=== PATIENT | female | born 1950 | race Caucasian/White ===

== ENCOUNTER 2018-12-06 11:15 | Outpatient (CLI) | payer MEDICARE, OTHER ==
--- NOTE | 2018-12-07 14:01 | Diagnostic Imaging Report ---
SAVANNAH QUINTERO [facility] [id number] [id number] Report Submission Date: Dec 06, 2018 12:16:12 PM CDT Patient Study Name: DARYL GOMES Date: Dec 06, 2018 12:00:00 AM CDT Modality Type: DEXA\OT Gender: F Description: DEXA : 50 Institution: [facility] Physician: SAVANNAH QUINTERO Examination: Bone density History: Assess bone mineralization Comparison exams: None available Technique: DEXA protocol Findings: Average bone mineral density from L1 through L4: 1.595 grams cm2. T score: 3.5 Average bone mineral density of the left femoral neck: 0.987 grams cm2. T score: -0.5 Average bone mineral density of the right femoral neck: 0.990 grams cm2. T score: 0.0 Impression: Normal lumbar spine and hip mineralization for age Electronically signed on Dec 06, 2018 12:16:12 PM CDT by: Cb [email or web address]
== END 2018-12-06 11:17 ==
LOC: RAD 11:15
PROVIDERS: ATTEND Family Medicine
DX: Z78.0 Asymptomatic menopausal state (principal)
CPT/HCPCS: 77080